=== PATIENT | male | born 2000 | race Caucasian/White ===

== ENCOUNTER 2024-02-26 17:44 | Emergency (ER) | payer SELFPAY ==
[~2024-02-26] VITALS: Ht 182.9 cm; Wt 67.9 kg
[2024-02-26] MEDS ORDERED: CEPHALEXIN500 MG PO (20:26)
[2024-02-26 20:34] VITALS: BP 135/84
== END 2024-02-26 20:34 | disposition home or self-care (01) ==
LOC: ED 17:44
DX: S91.311A Laceration without foreign body, right foot, initial encounter (principal); W26.9XXA Contact with unspecified sharp object(s), initial encounter
CPT/HCPCS: 12002; 99282-25